=== PATIENT | male | born 1940 | race Caucasian/White ===

== ENCOUNTER → 2016-10-21 | Outpatient (CLI) | payer MEDICARE, OTHER | END | disposition home or self-care (01) | LOC: RAD.S 10-17 15:47 | DX: M79.605 Pain in left leg (principal); M79.604 Pain in right leg; M54.5 Low back pain; R20.0 Anesthesia of skin; M47.816 Spondylosis without myelopathy or radiculopathy, lumbar region ==

== ENCOUNTER → 2016-11-06 | Outpatient (CLI) | payer MEDICARE, OTHER | END | disposition home or self-care (01) | LOC: RAD.S 08:54 | DX: I73.9 Peripheral vascular disease, unspecified (principal); M62.562 Muscle wasting and atrophy, not elsewhere classified, left lower leg; I70.209 Unspecified atherosclerosis of native arteries of extremities, unspecified extremity ==